=== PATIENT | female | born 1965 | race Caucasian/White ===

== ENCOUNTER → 2023-08-09 11:00 | Outpatient (REF) | payer SELFPAY | LOC: HWRAD 11:00 | PROVIDERS: ATTENDING PHYSICIAN Family Medicine | DX: E78.2 Mixed hyperlipidemia (principal) | CPT/HCPCS: 75571 ==

== ENCOUNTER → 2024-04-11 19:14 | Outpatient (REF) | payer BC, SELFPAY | LOC: WDC 19:14 | PROVIDERS: ATTENDING PHYSICIAN Obstetrics & Gynecology; FAMILY PHYSICIAN Family Medicine | DX: Z12.31 Encounter for screening mammogram for malignant neoplasm of breast (principal) | CPT/HCPCS: 77063; 77067 ==

== ENCOUNTER → 2024-04-26 09:31 | Outpatient (REF) | payer BC, SELFPAY | LOC: RAD 09:31 | PROVIDERS: ATTENDING PHYSICIAN Nurse Practitioner Family; FAMILY PHYSICIAN Family Medicine | DX: R50.9 Fever, unspecified (principal); R05.1 Acute cough | CPT/HCPCS: 71046 ==

== ENCOUNTER → 2024-11-07 10:57 | Outpatient (REF) | payer BC, SELFPAY | LOC: RAD 10:57 | PROVIDERS: ATTENDING PHYSICIAN Family Medicine | DX: M25.552 Pain in left hip (principal) | CPT/HCPCS: 73502 ==